=== PATIENT | female | born 1995 | race Two or more races ===

== ENCOUNTER 2025-07-29 15:30 | Emergency (ER) | payer OTHER, SELFPAY ==
[2025-07-29] VITALS (12 sets, daily range): BP systolic 121–132; BP diastolic 89–97; PULSE 74–83; TEMP 36.6; O2SAT 99–100; BMI 22.0
[2025-07-29 15:57] LABS: Hematocrit 30.6 % (36.0-48.0); Hemoglobin 10.1 g/dL (12.0-16.0); Immature Granulocytes Abs Auto 0.07 10^3/uL (0.00-0.03); Immature Granulocytes Pct Auto 0.7 % (0.0-0.5); Lymphocytes Absolute Auto 3.5 10^3/uL (1.2-3.8); Mean Corpuscular HGB Conc 33.0 g/dL (29.9-35.2); Mean Corpuscular Hemoglobin 19.7 pg (26.7-34.0); Mean Corpuscular Volume 59.8 fL (81.0-99.0); Platelet Count 197 10^3/uL (150-450); Red Blood Count 5.12 10^6/uL (4.20-5.40); White Blood Count 10.2 10^3/uL (4.0-11.0)
[2025-07-29 16:07] LABS: INR 1.02; Partial Thromboplastin Time 21.7 sec (22.3-36.2); Prothrombin Time 10.8 sec (9.0-11.6)
[2025-07-29 16:10] LABS: Alanine Aminotransferase 35 U/L (14-59); Albumin Globulin Ratio 0.9; Albumin Level 3.7 g/dL (3.4-5.0); Alkaline Phosphatase 79 U/L (46-116); Anion Gap 11.4; Aspartate Amino Transferase 20 U/L (15-37); Blood Urea Nitrogen 13.0 mg/dL (7.0-18.0); Calcium 8.5 mg/dL (8.5-10.1); Carbon Dioxide 24.8 mmol/L (21.0-32.0); Chloride 105 mmol/L (98-107); Estimated GFR (African America >60 (>=60 mL/min/1.73m^2); Estimated GFR (Non-African Ame >60 (>=60 mL/min/1.73m^2); Globulin 4.1 g/dL; Glucose 119 mg/dL (74-106); Potassium 3.2 mmol/L (3.5-5.1); Sodium 138 mmol/L (136-145); Total Protein 7.8 g/dL (6.4-8.2)
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
[2025-07-29] MEDS: IBUPROFEN 600 MG TABLET PO (18:01)
[2025-07-29] MEDS: ONDANSETRON 4 MG RAPDIS TABLET SL (18:01)
== END 2025-07-29 18:46 | disposition home or self-care (01) ==
PROVIDERS: Emergency Provider Student in an Organized Health Care Education/Training Program
DX: S06.0XAA Concussion with loss of consciousness status unknown, initial encounter (principal); S80.812A Abrasion, left lower leg, initial encounter; S80.811A Abrasion, right lower leg, initial encounter; W05.2XXA Fall from non-moving motorized mobility scooter, initial encounter; R51.9 Headache, unspecified
CPT/HCPCS: 36415; 70450; 71260; 72125; 74177; 76376; 80053; 81001; 84484; 85025; 85610; 85730; 86850; 86900; 86901; 93005; 99285; Q0162; Q9967